=== PATIENT | male | born 1960 | race Caucasian/White ===

== ENCOUNTER 2021-06-12 05:38 | Day surgery (SDC) | payer OTHER ==
[2021-06-10 08:37] VITALS: BMI 27.3
--- NOTE | 2021-06-11 15:19 | HP ---
HISTORY AND PHYSICAL DATE OF SURGERY: 06/12/2021 Miguel De La Garza is a 60-year-old gentleman seen with progressive left shoulder pain. We discussed options for treatment. He elected to proceed with left shoulder arthroscopy. Consent was obtained. PAST MEDICAL HISTORY: Hypertension. PAST SURGICAL HISTORY: Noncontributory. DAILY MEDICATIONS: None. ALLERGIES: NONE REPORTED. SOCIAL HISTORY: He smokes cigarettes. PHYSICAL EVALUATION OF THE LEFT SHOULDER: Flexion 140 degrees. Abduction is 100 degrees, external rotation is 10 degrees with some weakness. There is tenderness along the anterolateral acromion and rotator cuff insertion site. Impingement sign is positive at 90 degrees. Cross-body adduction sign is positive. Drop-arm sign is positive. Distal neurovascular exam is intact. Radiographs of the left shoulder revealed a type 2 acromion, severe acromioclavicular joint osteoarthritis and cystic changes of the tuberosity. Left shoulder MRI revealed osteoarthritic changes, impingement, acromioclavicular joint osteoarthritis and rotator cuff tendon tear. IMPRESSION: 1. Left shoulder impingement with rotator cuff tear. 2. Left shoulder acromioclavicular joint osteoarthritis. 3. Hypertension. PLAN: Left shoulder arthroscopy with subacromial decompression, arthroscopic rotator cuff repair, Adeline procedure and debridement. MMODL / IJN: [id number] /
[2021-06-12] MEDS ORDERED: HYDROmorphone 0.5 MG/0.5 ML SYRINGE IVP PRN (06:06)
[2021-06-12] MEDS ORDERED: MIDAZOLAM 2 MG/2 ML VIAL IV PRN (06:06)
[2021-06-12] MEDS ORDERED: LACTATED RINGERS 1,000 ML IV SCH (06:06)
[2021-06-12] MEDS ORDERED: DEXAMETHASONE SOD PHOSPHATE 4 MG/ML 1 ML VIAL IV ONE (06:06)
[2021-06-12] MEDS ORDERED: ONDANSETRON 4 MG/2 ML VIAL IVP ONE (06:06)
[2021-06-12 06:25] VITALS: TEMP 97.9
[2021-06-12] MEDS ORDERED: LIDOCAINE 1% (10MG/ML) FOR IV START INTRADERMA ONE (06:50)
[2021-06-12] MEDS ORDERED: SUCCINYLCHOLINE CHLORIDE VIAL 200 MG/10 ML VIAL IV ONE (07:21)
[2021-06-12] MEDS ORDERED: PROPOFOL 10 MG/ML 20 ML VIAL IV ONE (07:21)
[2021-06-12] MEDS ORDERED: LIDOCAINE 1% INJ 10MG/ML (20 ML MDV) ONE (07:21)
[2021-06-12] MEDS ORDERED: DEXAMETHASONE SOD PHOSPHATE 4 MG/ML 1 ML VIAL ONE (07:21)
[2021-06-12] MEDS ORDERED: ROPIVACAINE 5 MG/ML 30 ML VIAL ONE (07:21)
[2021-06-12] MEDS ORDERED: fentaNYL (PF) 50 MCG/ML 2 ML AMP ONE (07:21)
--- NOTE | 2021-06-12 08:55 | P.OP ---
Date of Procedure: 06/12/21 Preoperative Diagnosis: Left shoulder impingement Postoperative Diagnosis: 1. Left shoulder rotator cuff tear 2. Left shoulder acromioclavicular joint osteoarthritis 3. Left shoulder impingement Procedure(s) Performed: 1. Left shoulder arthroscopic rotator cuff repair 2. Left shoulder arthroscopic Adeline procedure 3. Left shoulder arthroscopic subacromial decompression Implants: 14.75 Arthrex swivel lock anchor Anesthesia: GETA, regional (Interscalene block) Surgeon: Jose C Lubin Estimated Blood Loss (ml): 11 Pathology: none sent Condition: stable Disposition: PACU Indications for Procedure: 60-year-old gentleman seen with progressive left shoulder pain. After treatment options were discussed with him, he elected to proceed with arthroscopy. Operative Findings: See description of procedure Description of Procedure: Patient underwent an interscalene block by department of anesthesia. The patient was then taken to the operative suite. The patient underwent a general anesthetic by the department of anesthesia. The patient was placed into a lateral position and secured. There was appropriate padding of the bony prominence. Left shoulder was then prepped and draped in normal sterile orthopedic fashion. We placed the extremity in 10 pounds of longitudinal traction. A posterior incision was now made for a posterior working portal site. The trocar and cannula were inserted into the glenohumeral joint. Arthroscopy was initiated. Spinal needle was now inserted anteriorly, to ascertain the anterior working portal site. An incision was now made in that area, a trocar was inserted followed by a probe. There was some superficial fraying of the anterior and superior labrum. There was no significant chondromalacia present. The long head biceps tendon appeared stable as did the anchor. I introduced a motorized shaver and debrided out the area superficial fraying of the labrum. I again probe the labrum and it was found to be stable. Instruments were now removed from the glenohumeral joint. Utilizing the posterior working portal site, the trocar and cannula were inserted into the subacromial space. Arthroscopy initiated. I made an incision 2 fingerbreadths lateral to the acromion. I introduced my trocar followed by my ArthroCare ablator. I now began ablating thick subacromial bursal tissue, which exposed the undersurface of the anterior acromion. There was diminished subacromial space. There was a very prominent anterior acromion. A motorized bur was introduced and a subacromial decompression was performed. I also excised some osteophytes off the inferior aspect of the distal clavicle. The AC joint was visualized and noted to be fairly arthritic. The motorized bur was introduced in the anterior portal site and a Adeline procedure was performed without difficulty, decompressing the AC joint nicely. I turned my attention to the rotator cuff. There was significant tearing along the posterior aspect of the distal supraspinatus. Upon probing the area there was a full-thickness perforation present. I debrided the margins getting down to stable tendon tissue. I abraded the footprint with a motorized bur. I now with the assistance of Brian MCGEE past 3 everted mattress sutures through good bites of rotator cuff tendon. I now punched to holes in the footprint for insertion of an anchor. All 6 limbs of suture were passed through the eyelet of a 4.75 Arthrex swivel lock anchor. I placed the eyelet into the pre-punched hole. I held it in position while Brian MCGEE tensioned all suture limbs and deployed the anchor with good fixation noted. All residual suture limbs were now clipped. We had good compression of the tendon along the entire footprint. Instruments now removed from the portal sites. All portal sites were approximated with nylon suture. Sterile dressings were applied followed by a shoulder sling. Bear MCGEE assisted in this complex case. The patient was awakened, transferred to a bed, and taken to recovery in stable condition.
[2021-06-12 09:04] VITALS: RESP 16
[2021-06-12 10:20] VITALS: BP 163/83; PULSE 62
--- NOTE | 2021-06-12 20:54 | P.ANPRN ---
Procedure Note - Anesthesia - Nerve Block Performed Left Interscalene Single Time Out Performed: Yes Date of Procedure: 06/12/20 Procedure Start Time: : Procedure Stop Time: :08 Location of Patient: PreOp Indication: Acute Post-Operative Pain, Requested by Surgeon Sedation Type: Sedate with meaningful contact maintained Preparation: Sterile Prep Position: Supine Needle Types: Pajunk Needle Gauge: 21 Ultrasound used to visualize needle placement: Yes Ultrasound used to observe medication spread: Yes Blood Aspirated: No Pain Paresthesia on Injection Noted: No Resistance on Injection: Normal Image Stored and Saved: Yes Events: Uneventful and Well Tolerated (ropi .5% 20cc plus dexamethasone 4mg)
== END 2021-06-12 10:26 | disposition home or self-care (01) ==
LOC: OR 05:38
PROVIDERS: ATTEND Orthopaedic Surgery
DX: M75.102 Unspecified rotator cuff tear or rupture of left shoulder, not specified as traumatic (principal); M25.712 Osteophyte, left shoulder; M19.012 Primary osteoarthritis, left shoulder; M25.812 Other specified joint disorders, left shoulder; I10 Essential (primary) hypertension; F17.210 Nicotine dependence, cigarettes, uncomplicated
CPT/HCPCS: 64415; 76942; 29826; 29827; 29824; C1713; J2250; J0330; J1100; J0690; J2405; J2001; J3010; J2795; J2704

== ENCOUNTER → 2023-04-24 | Outpatient (CLI) | payer OTHER ==
--- NOTE | 2023-04-26 23:30 | MR ---
EXAMINATION TYPE: MR lumbar spine wo con DATE OF EXAM: 04/24/2023 11:47 AM CLINICAL INDICATION:Male, 62 years old with history of M47.817 SPONDYLS W/O MYELOPATHY OR RADICULOPAT HY; PHH, Low back pain that radiates down both legs COMPARISON: None TECHNIQUE: Multi planar, multi sequence imaging was performed utilizing: T1-weighted, T2-weighted, a nd turbo inversion recovery imaging of the lumbar spine. IV Contrast: cc . (None if empty) FINDINGS: Alignment: The lumbar vertebral bodies have preserved heights and alignment. Cord: The conus medullaris and the distal spinal cord appear unremarkable with regards to their signa l intensity and morphology. Bones/Discs: Mild degeneration changes throughout the spine with osteophyte formation and facet joint arthropathy. Intervertebral disc signal is maintained. T12-L1: No evidence of significant spinal canal stenosis or neural foraminal stenosis. L1-L2: No evidence of significant spinal canal stenosis or neural foraminal stenosis. L2-L3: No evidence of significant spinal canal stenosis or neural foraminal stenosis. L3-L4: Disc bulge and facet joint arthropathy result in mild spinal canal and mild bilateral neural f oraminal stenosis. L4-L5: Disc bulge and facet joint arthropathy result in mild spinal canal and mild bilateral neural f oraminal stenosis. L5-S1: The disc is rounded posterior morphology without significant spinal canal stenosis. Facet join t arthropathy with mild bilateral neural foraminal stenosis. No significant spinal canal or neural foraminal stenosis in the remainder of the visualized levels. Other findings: High T2 signal simple appearing left hepatic lobe cyst. IMPRESSION: 1. No definitive evidence of disc herniation or significant spinal canal stenosis. 2. Mild disc degeneration with associated osteoarthritic changes. No significant neural foraminal st enosis.
== END | disposition home or self-care (01) ==
LOC: RADMRIMAIN 10:42
PROVIDERS: ATTEND Physical Medicine & Rehabilitation
DX: M47.817 Spondylosis without myelopathy or radiculopathy, lumbosacral region (principal); M43.16 Spondylolisthesis, lumbar region; M48.062 Spinal stenosis, lumbar region with neurogenic claudication; M51.37 Other intervertebral disc degeneration, lumbosacral region; M43.12 Spondylolisthesis, cervical region
CPT/HCPCS: 72148

== ENCOUNTER → 2023-05-26 | Outpatient (CLI) | payer OTHER ==
[2023-05-26 11:23] VITALS: BP 164/93; PULSE 59; RESP 16; TEMP 97.3
--- NOTE | 2023-05-26 14:34 | P.PAINPG ---
PQRS Measure Charge Sheet History and Exam Findings: All other causes of pain ruled out Comment: HISTORY OF PRESENT ILLNESS: A 62 yr old male as a referral from Dr Tsang presents today w severe and chronic LBP x 1 yr secondary to DDD, spondylosis and facet arthropathy without myelopathy for evaluation. Pt states pain level is provoked at 7 /10 in intensity, constant, localized in the lower lumbar spine, predominantly axial, sharp in character w occasional shooting pain towards the LEs, L> R. Pain is provoked by any movement. Pain is alleviated by repositioning and rest. Pt has a preference to go to the chiropractor his girlfriend goes to. Oswestry axial pain score at 28. PMH: OA, HTN, GERD PSH: Colonoscopy w polypectomy (2013), L RCT Repair (2021) SH: +Tobacco use, Occasional ETOH use, No illicit drug use FH: Noncontributory All: See list Meds: See list REVIEW OF ORGAN SYSTEMS: CONSTITUTIONAL: No fevers or chills. No recent weight loss. NEUROLOGICAL: + numbness and tingling along the distal extremities. No seizure disorders or headaches. MUSCULOSKELETAL: + pain PSYCHIATRIC: Denies current depression or suicidal thoughts. Physical Examinations : Constitutional : Cooperative , not in acute distress . Neurologic : Cranial nerve II to XII intact. No focal neurological deficits. Psychiatric : alert & oriented x 3. Matching mood & appropriate affect. Judgment & insight intact. Musculoskeletal : Cervical Spine Motor strength in the deltoid and biceps: Normal right side. Normal Left side Motor strength biceps and the wrist extensors: Normal right side . Normal left side Motor strength in the triceps muscle: Normal right side. Normal left side Deep tendon reflexes: Normal at the biceps. Normal at Brachioradialis. Normal at triceps Vertebral body tenderness to deep palpation over Cervical facet loading test: positive bilaterally Spurling test: positive bilaterally Neck distraction test: positive bilaterally Abby sign: positive bilaterally Lumbar spine Motor strength lower extremities ,thigh and legs 5/5 Right side , 5/5 Left side Deep tendon reflexes : Normal Knee Jerk. Normal Ankle Jerk Vertebral body tenderness over L5 Hyde Test positive over L L5-S1 Lumbar facet Loading Test: positive Right / positive Left Range of motion of the lumbar spine Flexion 30 degrees, extension 10 degrees Straight Leg Raise test: Left/ Right positive at <35 degrees Krystina test: positive right / positive left. Severe tenderness over the Sacroiliac joint on the Right / Left sides Gaenslen test: positive bilaterally Seated flexion test: positive bilaterally. Sacral spine : Severe tenderness over the Sacroiliac joint: right side / left side Range of motion: Flexion of the lumbar spine <60 degrees Range of motion: Extension of the lumbar spine <20 degrees Gaenslen's Test positive Krystina test: positive right side / left side Thigh Thrust Test Sacral Thrust Test Imaging: MRI noncontrast of the lumbar spine from 04/24/23 reviewed Assessment/ Plan : Lumbar DDD Recommendation of chiropractic treatments x 6 wks M51.36. Risks, benefits of procedure discussed and patient verbalized understanding. Admits to anti- coagulant use or medical history of diabetes. Protocol for discontinuation/ continuation of medications sheeba procedure discussed. Would benefit from L TFESI L5-S1 if still having severe pain. All questions answered. I have spent greater than 30 minutes on patient care today. Dr Quarles was available by phone for the evaluation of this patient. The time was used to review the medical records including relevant urine studies and Prescription history (MAPs), review of the available imaging, evaluation and examination of the patient, coordination of care with the medical staff and if applicable referring physicians, as well as creation of the medical record PQRS Narrative: Smoking Status Heavy tobacco smoker Home Medications: Ambulatory Orders HYDROcodone/APAP 7.5-325MG [[place] 7.5] 1 each PO Q6HR PRN #28 tab 06/12/21 Controlled Substance Measures - Controlled Substance Measures Is patient prescribed a controlled substance at discharge?: No
== END ==
LOC: PNWHC3 10:57
PROVIDERS: ATTEND Specialist
DX: M51.37 Other intervertebral disc degeneration, lumbosacral region (principal); M47.817 Spondylosis without myelopathy or radiculopathy, lumbosacral region; M43.16 Spondylolisthesis, lumbar region; M43.12 Spondylolisthesis, cervical region; G89.4 Chronic pain syndrome; M19.90 Unspecified osteoarthritis, unspecified site; I10 Essential (primary) hypertension; K21.9 Gastro-esophageal reflux disease without esophagitis; F17.200 Nicotine dependence, unspecified, uncomplicated; F12.90 Cannabis use, unspecified, uncomplicated
CPT/HCPCS: 99211

== ENCOUNTER → 2023-07-07 | Outpatient (CLI) | payer OTHER ==
[2023-07-07 11:35] VITALS: BP 144/84; PULSE 89; RESP 15; TEMP 98.7
--- NOTE | 2023-07-07 14:29 | P.PAINPG ---
PQRS Measure Charge Sheet Comment: HISTORY OF PRESENT ILLNESS: A 62 yr old male w vinny at side presents today w severe and chronic LBP x 1 yr secondary to DDD, spondylosis and facet arthropathy without myelopathy for evaluation. Pt states pain level is provoked at 9 /10 in intensity, constant, localized in the lower lumbar spine, predominantly axial, sharp in character w occasional shooting pain towards the LLE. Pain is provoked by any movement. Pain is alleviated by chiropractic treatments weekly x 6 wks which ended in Jun 2022, manual massage, repositioning and rest. Oswestry axial pain score at 28. Interventional procedures include Medications include Cannabis use REVIEW OF ORGAN SYSTEMS: CONSTITUTIONAL: No fevers or chills. No recent weight loss. NEUROLOGICAL: + numbness and tingling along the distal extremities. No seizure disorders or headaches. MUSCULOSKELETAL: + pain PSYCHIATRIC: Denies current depression or suicidal thoughts. Physical Examinations : Constitutional : Cooperative , not in acute distress . Neurologic : Cranial nerve II to XII intact. No focal neurological deficits. Psychiatric : alert & oriented x 3. Matching mood & appropriate affect. Judgment & insight intact. Musculoskeletal : Cervical Spine Motor strength in the deltoid and biceps: Normal right side. Normal Left side Motor strength biceps and the wrist extensors: Normal right side . Normal left side Motor strength in the triceps muscle: Normal right side. Normal left side Deep tendon reflexes: Normal at the biceps. Normal at Brachioradialis. Normal at triceps Vertebral body tenderness to deep palpation over Cervical facet loading test: positive bilaterally Spurling test: positive bilaterally Neck distraction test: positive bilaterally Abby sign: positive bilaterally Lumbar spine Motor strength lower extremities ,thigh and legs 5/5 Right side , 5/5 Left side Deep tendon reflexes : Normal Knee Jerk. Normal Ankle Jerk Vertebral body tenderness over L5 Hyde Test positive over L L5-S1 Lumbar facet Loading Test: positive Right / positive Left Range of motion of the lumbar spine Flexion 30 degrees, extension 10 degrees Straight Leg Raise test: Left/ Right positive at <35 degrees Krystina test: positive right / positive left. Severe tenderness over the Sacroiliac joint on the Right / Left sides Gaenslen test: positive bilaterally Seated flexion test: positive bilaterally. Sacral spine : Severe tenderness over the Sacroiliac joint: right side / left side Range of motion: Flexion of the lumbar spine <60 degrees Range of motion: Extension of the lumbar spine <20 degrees Gaenslen's Test positive Krystina test: positive right side / left side Thigh Thrust Test Sacral Thrust Test Imaging: MRI noncontrast of the lumbar spine from 04/24/23 reviewed Assessment/ Plan : Lumbar DDD Recommendation of L TFESI L5-S1 #1. May need a series of injections for optimal pain relief. Risks, benefits of procedure discussed and patient verbalized understanding. Admits to anti- coagulant use or medical history of diabetes. Protocol for discontinuation/ continuation of medications sheeba procedure discussed. All questions answered. I have spent greater than 30 minutes on patient care today. Dr Quarles was available by phone for the evaluation of this patient. The time was used to review the medical records including relevant urine studies and Prescription history (MAPs), review of the available imaging, evaluation and examination of the patient, coordination of care with the medical staff and if applicable referring physicians, as well as creation of the medical record PQRS Narrative: Smoking Status Heavy tobacco smoker Hx Alcohol Use (MH) Yes Home Medications: Ambulatory Orders HYDROcodone/APAP 7.5-325MG [[place] 7.5] 1 each PO Q6HR PRN #28 tab 06/12/21 Controlled Substance Measures - Controlled Substance Measures Is patient prescribed a controlled substance at discharge?: No
== END ==
LOC: PNWHC3 10:30
PROVIDERS: ATTEND Specialist
DX: M51.37 Other intervertebral disc degeneration, lumbosacral region (principal); F12.90 Cannabis use, unspecified, uncomplicated; F17.200 Nicotine dependence, unspecified, uncomplicated
CPT/HCPCS: 99211

== ENCOUNTER 2023-07-22 07:14 | Day surgery (SDC) | payer OTHER ==
[2023-07-22] MEDS ORDERED: LACTATED RINGERS 1,000 ML IV SCH (07:38)
[2023-07-22 08:15] VITALS: RESP 16; TEMP 97.2
[2023-07-22] MEDS ORDERED: IOPAMIDOL M200 10 ML VIAL ONE (08:44)
[2023-07-22] MEDS ORDERED: methylPREDNISolone ACETATE 80 MG/ML 1 ML VIAL ONE (08:44)
--- NOTE | 2023-07-22 08:54 | P.PCN ---
Date of Procedure: 07/22/23 Procedure(s) Performed: PREOPERATIVE DIAGNOSIS: 1-Lumbar radiculopathy . 2-lumbar degenerative disc disease. 3-lumbar spondylosis with lumbar facet arthropathy without myelopathy POSTOPERATIVE DIAGNOSIS: 1-lumbar radiculopathy. 2-lumbar degenerative disc disease. 3-lumbar spondylosis with facet arthropathy without myelopathy PROCEDURE 1. Transforaminal epidural steroid injection under fluoroscopic guidance at left L5-S1 level. (Fluoroscopy images stored on file in the radiology Department ) 2. Lumbar epidurogram . ANESTHESIA: Local with 1% lidocaine 3 ml. EBL: Minimal PROCEDURE INDICATION: The patient with low back pain and radiculopathy symptoms unresponsive to conservative treatment. PROCEDURE DESCRIPTION / TECHNIQUE: The patient was seen and identified in the preoperative area. Risks, benefits, complications, and alternatives were discussed with the patient. The patient agreed to proceed with the procedure and signed the consent. IV was started, and vital signs were stable. Patient was taken to the OR and time out was completed. The patient was placed in the prone position on procedure table and a pillow was placed under the abdomen to reduce lumbar lordosis. The lumbosacral area was prepped and draped in the usual sterile fashion. Critical pause was taken. Vital signs were closely monitored during the procedure. Using oblique fluoroscopy, the chin of the ``[place] dog at left L5-S1 level was identified, and the skin and deeper tissues just below was localized with 1% lidocaine. Subsequently, a 22-gauge 3.5-inch spinal needle was advanced under a tunneled view fluoroscopic guidance just underneath the chin of the `[place] dog at the left L5-S1 Under lateral fluoroscopy, the needle was then advanced to the posterior border of the interforaminal space. After negative aspiration of CSF and blood and with no paresthesias, 1 mL Isovue 200 contrast dye was injected excellent epidurogram and outlining of the nerve root Subsequently, 3 mL of block solution containing 80 mg Depo-Medrol and 2 mL of 0.9% normal saline PF was injected.then the needle was removed . At the end of the procedure, skin was cleansed, and bandages were applied. COMPLICATIONS:none DISPOSITION / PLANS: The patient was placed in a supine position and transferred to the recovery area in a stable condition for observation. There was no evidence of lower extremity motor or sensory deficit after the procedure. Patient was discharged from the recovery room after meeting discharge criteria. Home discharge instructions were given to the patient by the staff. The patient was reexamined prior to discharge.
[2023-07-22 09:25] VITALS: BP 151/84; PULSE 54
--- NOTE | 2023-07-22 09:53 | FL ---
EXAMINATION TYPE: FL guided pain mgmt statistic Intraoperative/procedural fluoroscopic services were provided. Total fluoroscopy time is 3.8 seconds with a total of 1 submitted images to PACS. Please se e the operative/procedural note for further details. DAP: [id number]. [email or web address]
== END 2023-07-22 09:11 | disposition home or self-care (01) ==
LOC: ORPAIN 07:14
PROVIDERS: ATTEND Specialist
DX: M51.16 Intervertebral disc disorders with radiculopathy, lumbar region (principal); M47.26 Other spondylosis with radiculopathy, lumbar region
CPT/HCPCS: 64483; J1040; Q9966

== ENCOUNTER → 2023-08-09 | Outpatient (CLI) | payer OTHER ==
[2023-08-09 11:18] VITALS: BP 142/78; PULSE 75; RESP 15; TEMP 98.5
--- NOTE | 2023-08-09 14:43 | P.PAINPG ---
PQRS Measure Charge Sheet Comment: HISTORY OF PRESENT ILLNESS: A 62 yr old male w vinny at side presents today w severe and chronic LBP x 1 yr secondary to DDD, spondylosis and facet arthropathy without myelopathy for evaluation s/p L TFESI L5-S1 #1. Pt states he experienced 100 % pain relief x 2 wks s/p procedure. Pt states pain level is provoked at 1 /10 in intensity in the lumbar spine, 5 /10 in intensity in the cervical spine, constant, predominantly axial, sharp in character w occasional shooting pain towards the head. Pain is provoked by any movement. Pain is alleviated by chiropractic treatments weekly x 6 wks which ended in May-Jul 2023 (cervica, lumbar), manual massage, repositioning and rest. Cervical disability score of 15. Interventional procedures include L TFESI L5-S1 x1 Medications include Cannabis use REVIEW OF ORGAN SYSTEMS: CONSTITUTIONAL: No fevers or chills. No recent weight loss. NEUROLOGICAL: + numbness and tingling along the distal extremities. No seizure disorders or headaches. MUSCULOSKELETAL: + pain PSYCHIATRIC: Denies current depression or suicidal thoughts. Physical Examinations : Constitutional : Cooperative , not in acute distress . Neurologic : Cranial nerve II to XII intact. No focal neurological deficits. Psychiatric : alert & oriented x 3. Matching mood & appropriate affect. Judgment & insight intact. Musculoskeletal : Cervical Spine Motor strength in the deltoid and biceps: Normal right side. Normal Left side Motor strength biceps and the wrist extensors: Normal right side . Normal left side Motor strength in the triceps muscle: Normal right side. Normal left side Deep tendon reflexes: Normal at the biceps. Normal at Brachioradialis. Normal at triceps Vertebral body tenderness to deep palpation Cervical facet loading test: positive bilaterally Spurling test: positive bilaterally Neck distraction test: positive bilaterally Abby sign: positive bilaterally Lumbar spine Motor strength lower extremities ,thigh and legs 5/5 Right side , 5/5 Left side Deep tendon reflexes : Normal Knee Jerk. Normal Ankle Jerk Vertebral body tenderness Hyde Test positive Lumbar facet Loading Test: positive Right / positive Left Range of motion of the lumbar spine Flexion 30 degrees, extension 10 degrees Straight Leg Raise test: Left/ Right positive at <35 degrees Krystina test: positive right / positive left. Severe tenderness over the Sacroiliac joint on the Right / Left sides Gaenslen test: positive bilaterally Seated flexion test: positive bilaterally. Sacral spine : Severe tenderness over the Sacroiliac joint: right side / left side Range of motion: Flexion of the lumbar spine <60 degrees Range of motion: Extension of the lumb ar spine <20 degrees Gaenslen's Test positive Krystina test: positive right side / left side Thigh Thrust Test Sacral Thrust Test Imaging: MRI noncontrast of the lumbar spine from 04/24/23 reviewed Assessment/ Plan : Lumbar DDD Recommendation of cervical x ray M50.30 . May need additional imaging if indicated. All questions answered. I have spent greater than 30 minutes on patient care today. Dr Quarles was available by phone for the evaluation of this patient. The time was used to review the medical records including relevant urine studies and Prescription history (MAPs), review of the available imaging, evaluation and examination of the patient, coordination of care with the medical staff and if applicable referring physicians, as well as creation of the medical record PQRS Narrative: Smoking Status Heavy tobacco smoker Hx Alcohol Use (MH) Yes Home Medications: Ambulatory Orders Pantoprazole [Protonix] 40 mg PO DAILY 07/19/23 Controlled Substance Measures - Controlled Substance Measures Is patient prescribed a controlled substance at discharge?: No
== END | disposition home or self-care (01) ==
LOC: PNWHC3 10:45
PROVIDERS: ATTEND Specialist
DX: M47.812 Spondylosis without myelopathy or radiculopathy, cervical region (principal); M51.36 Other intervertebral disc degeneration, lumbar region; F12.90 Cannabis use, unspecified, uncomplicated; F17.200 Nicotine dependence, unspecified, uncomplicated
CPT/HCPCS: 99211

== ENCOUNTER → 2023-08-09 | Outpatient (CLI) | payer OTHER ==
--- NOTE | 2023-08-09 12:04 | XR ---
EXAMINATION TYPE: XR cervical spine limited DATE OF EXAM: 08/09/2023 CLINICAL HISTORY: pain TECHNIQUE: 3 views of the cervical spine are submitted. COMPARISON: None. FINDINGS: There is satisfactory in alignment without evidence of acute fracture or dislocation. The pre-vertebral soft tissue appears within normal limits. Moderate degenerative disc space narrowing C 4-5, C5-6 and C6-7. Ventral and dorsal spondylosis. The C1-C2 articulation is unremarkable on the ope n mouth view. IMPRESSION: No acute fracture or dislocation is seen in the cervical spine.
== END | disposition home or self-care (01) ==
LOC: RADXRMAIN 11:34
PROVIDERS: ATTEND Physician Assistant Medical
DX: M50.30 Other cervical disc degeneration, unspecified cervical region (principal)
CPT/HCPCS: 72040

== ENCOUNTER → 2023-08-17 | Outpatient (CLI) | payer OTHER ==
--- NOTE | 2023-08-17 12:42 | MR ---
EXAMINATION TYPE: MR cervical spine wo con DATE OF EXAM: 08/17/2023 COMPARISON: X-ray 08/09/2023 HISTORY: Pain TECHNIQUE: Multiplanar, multisequence images of the cervical spine were acquired without contrast. C2-C3: Mild disc desiccation. No disc herniation or canal stenosis. Mild facet arthropathy. No forami nal encroachment. C3-C4: Moderate degenerative disc disease with posterior disc osteophyte complex abutting the anterio r margin of the spinal cord. Uncovertebral joint hypertrophy. No foraminal encroachment. Findings res ult in canal stenosis. C4-C5: Moderate to severe degenerative disc disease with broad-based disc protrusion abutting the ant erior margin of the spinal cord. Facet arthropathy and uncovertebral joint hypertrophy contribute to moderate to severe right foraminal encroachment. There is mild canal stenosis. C5-C6: Severe degenerative disc disease with disc osteophyte complex and central broad-based disc pro trusion. Facet arthropathy and uncovertebral joint hypertrophy with mild to moderate bilateral forami nal encroachment and mild central stenosis. No definite spinal cord displacement. C6-C7: Mild degenerative disc disease. No disc herniation, canal stenosis,. Mild uncovertebral joint hypertrophy. Neural foramina patent. C7-T1: Mild degenerative disc disease with no disc herniation, canal stenosis, or foraminal encroachm ent. There is loss of the normal cervical lordosis with straightening of the cervical spine which is nonsp ecific but can be seen with muscular spasm. Slight levoscoliotic curvature of the spine noted. Cranio cervical junction grossly maintained. IMPRESSION: 1. There is a moderate to severe degenerative disc disease most marked at C4-5 and C5-C6. Straighteni ng of the cervical spine can be associated with muscular spasm. 2. A central disc small protrusion or small herniation abutting the anterior margin of the cervical s fabiola cord C3-C4. 3. Disc protrusion with disc osteophyte complex C4-5 and C5-6 results in mild canal stenosis.
== END | disposition home or self-care (01) ==
LOC: RADMRIMAIN 10:49
PROVIDERS: ATTEND Specialist
DX: M50.321 Other cervical disc degeneration at C4-C5 level (principal); M48.02 Spinal stenosis, cervical region; M25.78 Osteophyte, vertebrae
CPT/HCPCS: 72141

== ENCOUNTER → 2023-08-23 | Outpatient (CLI) | payer OTHER ==
[2023-08-23 13:23] VITALS: BP 169/89; PULSE 57; RESP 16; TEMP 97
--- NOTE | 2023-08-23 13:58 | P.PAINPG ---
PQRS Measure Charge Sheet Comment: HISTORY OF PRESENT ILLNESS: A 62 yr old male w vinny at side presents today w severe and chronic LBP x 1 yr secondary to DDD, spondylosis and facet arthropathy without myelopathy for evaluation. Pt states pain level is provoked at 7 /10 in intensity in the cervical spine, constant, predominantly axial, sharp in character w occasional shooting pain towards the UEs. Pain is provoked by any movement. Pain is alleviated by chiropractic treatments weekly x 6 wks which ended in May-Jul 2023 (cervical, lumbar), manual massage, repositioning and rest. Cervical disability score of 15. Interventional procedures include L TFESI L5-S1 x1 Medications include Cannabis use REVIEW OF ORGAN SYSTEMS: CONSTITUTIONAL: No fevers or chills. No recent weight loss. NEUROLOGICAL: + numbness and tingling along the distal extremities. No seizure disorders or headaches. MUSCULOSKELETAL: + pain PSYCHIATRIC: Denies current depression or suicidal thoughts. Physical Examinations : Constitutional : Cooperative , not in acute distress . Neurologic : Cranial nerve II to XII intact. No focal neurological deficits. Psychiatric : alert & oriented x 3. Matching mood & appropriate affect. Judgment & insight intact. Musculoskeletal : Cervical Spine Motor strength in the deltoid and biceps: Normal right side. Normal Left side Motor strength biceps and the wrist extensors: Normal right side . Normal left side Motor strength in the triceps muscle: Normal right side. Normal left side Deep tendon reflexes: Normal at the biceps. Normal at Brachioradialis. Normal at triceps Vertebral body tenderness to deep palpation over C6 Cervical facet loading test: positive bilaterally Spurling test: positive bilaterally BL C6-C7 Neck distraction test: positive bilaterally Abby sign: positive bilaterally Lumbar spine Motor strength lower extremities ,thigh and legs 5/5 Right side , 5/5 Left side Deep tendon reflexes : Normal Knee Jerk. Normal Ankle Jerk Vertebral body tenderness Hyde Test positive Lumbar facet Loading Test: positive Right / positive Left Range of motion of the lumbar spine Flexion 30 degrees, extension 10 degrees Straight Leg Raise test: Left/ Right positive at <35 degrees Krystina test: positive right / positive left. Severe tenderness over the Sacroiliac joint on the Right / Left sides Gaenslen test: positive bilaterally Seated flexion test: positive bilaterally. Sacral spine : Severe tenderness over the Sacroiliac joint: right side / left side Range of motion: Flexion of the lumbar spine <60 degrees Range of motion: Extension of the lumbar spine <20 degrees Gaenslen's Test positive Krystina test: positive right side / left side Thigh Thrust Test Sacral Thrust Test Imaging: MRI noncontrast of the lumbar spine from 04/24/23 reviewed MRI noncontrast of the cervical spine from 08/17/23 reviewed Assessment/ Plan : Lumbar DDD, Cervical C4-C6 severe DDD Recommendation of ASHISH C6-C7 #1. May need a series of injections for optimal pain relief. Risks, benefits of procedure discussed and pt verbalized understanding. Protocol for discontinuation/ continuation of medications sheeba procedure discussed. All questions answered. I have spent greater than 30 minutes on patient care today. Dr Quarles was available by phone for the evaluation of this patient. The time was used to review the medical records including relevant urine studies and Prescription history (MAPs), review of the available imaging, evaluation and examination of the patient, coordination of care with the medical staff and if applicable referring physicians, as well as creation of the medical record PQRS Narrative: Smoking Status Heavy tobacco smoker Hx Alcohol Use (MH) Yes Home Medications: Ambulatory Orders Pantoprazole [Protonix] 40 mg PO DAILY 07/19/23 Controlled Substance Measures - Controlled Substance Measures Is patient prescribed a controlled substance at discharge?: No
== END ==
LOC: PNWHC3 10:57
PROVIDERS: ATTEND Specialist
DX: M51.36 Other intervertebral disc degeneration, lumbar region (principal); M50.321 Other cervical disc degeneration at C4-C5 level; M50.322 Other cervical disc degeneration at C5-C6 level; M50.323 Other cervical disc degeneration at C6-C7 level; F17.200 Nicotine dependence, unspecified, uncomplicated
CPT/HCPCS: 99211

== ENCOUNTER 2023-08-31 08:39 | Day surgery (SDC) | payer OTHER ==
[~2023-08-31 08:39] MED LIST: LACTATED RINGERS 1,000 ML IV SCH
[2023-08-31 10:28] VITALS: TEMP 98
[2023-08-31] MEDS ORDERED: DEXAMETHASONE SOD PHOSPHATE 10 MG/ML 1 ML VIAL ONE (10:34)
[2023-08-31] MEDS ORDERED: IOPAMIDOL M200 10 ML VIAL ONE (10:34)
--- NOTE | 2023-08-31 10:41 | P.PCN ---
Date of Procedure: 08/31/23 Procedure(s) Performed: . PROCEDURE 1. Cervical epidural steroid injection under fluoroscopic guidance, C6-7 (fluoroscopy images available in the radiology department ) 2. Cervical epidurogram. PREOPERATIVE DIAGNOSIS: 1- Cervical Degenerative Disc Diseases 2-cervical spondylosis with cervical Facet arthropathy without myelopathy.4-cervical spinal stenosis POSTOPERATIVE DIAGNOSIS: : 1- Cervical Degenerative Disc Diseases , 2-cervical spondylosis with cervical Facet arthropathy without myelopathy. 4-cervical spinal stenosis ANESTHESIA: Local anesthesia with lidocaine 1% 3 ml only EBL 0 PROCEDURE INDICATION: The patient with neck pain and radiculitis unresponsive to conservative treatment consents for procedure. PROCEDURE DESCRIPTION / TECHNIQUE: The patient was seen and identified in the preoperative area. Risks, benefits, complications, including but not limited to infections ,bleeding , allergic reactions to the medications ,and not complete pain releife, and alternatives were discussed with the patient, the patient agreed to proceed with the procedure and signed the consent. Patient was taken to the OR and time out was completed. The patient was placed in the prone position on the procedure table. A pillow was placed under the patients chest to increase the cervical interlaminar space. The cervical area was prepped and draped in the usual sterile fashion. Vital signs were closely monitored during the procedure. Using anterior-posterior fluoroscopy, the C6-7 interlaminar space was identified and the skin over this site was marked and then infiltrated with 1% lidocaine subcutaneously. Subsequently, a 20-gauge 3-1/2-inch Tuohy epidural needle was inserted and advanced toward the epidural space by means of the ``hanging-drop technique and guided by AP and lateral fluoroscopy. The correct needle position in the epidural space was verified with the injection of 2 mL of the water soluble contrast dye Isovue-200 and observing an excellent epidurogram with the epidural spread of the dye, after negative aspiration for blood and CSF and in the absence of paresthesias. then, mixture containing 20 mg Dexamethasone and 2 ml of preservative-free normal saline injected and a washout of epidurogram was seen. Needle was withdrawn intact, skin was cleansed, and bandages were applied. Complications= none. Disposition= patient was placed in supine position and transferred to the recovery room area in stable condition and there was no evidence of upper or lower extremity motor or sensory deficit after the procedure patient was discharged from recovery room after discharge criteria met and home discharge instructions was given by the staff and patient will follow with the pain clinic in 2-4 weeks
[2023-08-31 11:14] VITALS: BP 152/84; PULSE 47; RESP 18
--- NOTE | 2023-09-02 16:44 | FL ---
EXAMINATION TYPE: FL guided pain mgmt statistic DATE OF EXAM: 08/31/2023 FLUOROSCOPY Fluoroscopy time of 3 seconds was used during cervical epidural steroid injection. 1 image/s documen t/s the procedure. .[id number] mGycm2 DAP dose
== END 2023-08-31 11:09 | disposition home or self-care (01) ==
LOC: ORPAIN 08:39
PROVIDERS: ATTEND Specialist
DX: M50.123 Cervical disc disorder at C6-C7 level with radiculopathy (principal); M47.22 Other spondylosis with radiculopathy, cervical region
CPT/HCPCS: 62321; J1100; Q9966

== ENCOUNTER → 2023-09-20 | Outpatient (CLI) | payer OTHER ==
[2023-09-20 11:09] VITALS: BP 180/81; PULSE 76; RESP 15; TEMP 98.1
--- NOTE | 2023-09-20 14:57 | P.PAINPG ---
PQRS Measure Charge Sheet Comment: HISTORY OF PRESENT ILLNESS: A 62 yr old male w vinny at side presents today w severe and chronic LBP x 1 yr secondary to DDD, spondylosis and facet arthropathy without myelopathy for evaluation s/p ASHISH C6-C7 #1. Pt states he experienced 70 % pain relief x 3 wks s/p procedure. Pt states pain level is provoked at 4 /10 in intensity in the cervical spine, constant, predominantly axial, sharp in character w occasional shooting pain towards the UEs. Pain is provoked by any movement. Pain is alleviated by chiropractic treatments weekly x 6 wks which ended in May-Jul 2023 (cervical, lumbar), manual massage, repositioning and rest. Cervical disability score of 15. Interventional procedures include L TFESI L5-S1 x1, ASHISH C6-C7 x1 Medications include Cannabis use REVIEW OF ORGAN SYSTEMS: CONSTITUTIONAL: No fevers or chills. No recent weight loss. NEUROLOGICAL: + numbness and tingling along the distal extremities. No seizure disorders or headaches. MUSCULOSKELETAL: + pain PSYCHIATRIC: Denies current depression or suicidal thoughts. Physical Examinations : Constitutional : Cooperative , not in acute distress . Neurologic : Cranial nerve II to XII intact. No focal neurological deficits. Psychiatric : alert & oriented x 3. Matching mood & appropriate affect. Judgment & insight intact. Musculoskeletal : Cervical Spine Motor strength in the deltoid and biceps: Normal right side. Normal Left side Motor strength biceps and the wrist extensors: Normal right side . Normal left side Motor strength in the triceps muscle: Normal right side. Normal left side Deep tendon reflexes: Normal at the biceps. Normal at Brachioradialis. Normal at triceps Vertebral body tenderness to deep palpation over C6 Cervical facet loading test: positive bilaterally Spurling test: positive bilaterally BL C6-C7 Neck distraction test: positive bilaterally Abby sign: positive bilaterally Lumbar spine Motor strength lower extremities ,thigh and legs 5/5 Right side , 5/5 Left side Deep tendon reflexes : Normal Knee Jerk. Normal Ankle Jerk Vertebral body tenderness Hyde Test positive Lumbar facet Loading Test: positive Right / positive Left Range of motion of the lumbar spine Flexion 30 degrees, extension 10 degrees Straight Leg Raise test: Left/ Right positive at <35 degrees Krystina test: positive right / positive left. Severe tenderness over the Sacroiliac joint on the Right / Left sides Gaenslen test: positive bilaterally Seated flexion test: positive bilaterally. Sacral spine : Severe tenderness over the Sacroiliac joint: right side / left side Range of motion: Flexion of the lumbar spine <60 degrees Range of motion: Extension of the lumbar spine <20 degrees Gaenslen's Test positive Krystina test: positive right side / left side Thigh Thrust Test Sacral Thrust Test Imaging: MRI noncontrast of the lumbar spine from 04/24/23 reviewed MRI noncontrast of the cervical spine from 08/17/23 reviewed Assessment/ Plan : Lumbar DDD, Cervical C4-C6 severe DDD Recommendation of physician guided home exercise plan and may RTC on an as needed basis. All questions answered. I have spent greater than 30 minutes on patient care today. Dr Quarles was available by phone for the evaluation of this patient. The time was used to review the medical records including relevant urine studies and Prescription history (MAPs), review of the available imaging, evaluation and examination of the patient, coordination of care with the medical staff and if applicable referring physicians, as well as creation of the medical record - Pain Location Bilateral Neck Pharmacological Interventions: Epidural PQRS Narrative: Smoking Status Heavy tobacco smoker Hx Alcohol Use (MH) Yes Home Medications: Ambulatory Orders Pantoprazole [Protonix] 40 mg PO DAILY 07/19/23 Controlled Substance Measures - Controlled Substance Measures Is patient prescribed a controlled substance at discharge?: No
== END ==
LOC: PNWHC3 10:47
PROVIDERS: ATTEND Specialist
DX: G89.29 Other chronic pain (principal); M51.36 Other intervertebral disc degeneration, lumbar region; M50.321 Other cervical disc degeneration at C4-C5 level; M50.322 Other cervical disc degeneration at C5-C6 level; M50.323 Other cervical disc degeneration at C6-C7 level; M47.812 Spondylosis without myelopathy or radiculopathy, cervical region; M47.816 Spondylosis without myelopathy or radiculopathy, lumbar region; F17.200 Nicotine dependence, unspecified, uncomplicated
CPT/HCPCS: 99211

== ENCOUNTER → 2024-09-18 | Outpatient (CLI) | payer BC, MEDICARE ==
[2024-09-18 10:54] VITALS: BP 167/90; PULSE 54; RESP 16; TEMP 97.7
--- NOTE | 2024-09-18 16:11 | P.PAINPG ---
Objective - Vital Signs Vital signs: Vital Signs Temp 97.7 F 09/18/24 10:37 Pulse 54 L 09/18/24 10:37 Resp 16 09/18/24 10:37 BP 167/90 09/18/24 10:37 Pulse Ox 98 09/18/24 10:37 FiO2 Intake & Output 09/17/24 09/18/24 09/18/24 18:59 06:59 18:59 Weight 73.936 kg PQRS Measure Charge Sheet Mode of Arrival: Ambulatory Comment: HISTORY OF PRESENT ILLNESS: A 64 yr old male w fiance at side presents today w severe and chronic neck and LBP x 1 yr secondary to radiculopathy, spondylosis and facet arthropathy without myelopathy for evaluation. Pt states pain level is provoked at 6 /10 in intensity in the cervical spine, constant, predominantly axial, sharp in character w occasional shooting pain towards the UEs. Pain is provoked by any movement. Pain is alleviated by chiropractic treatments weekly x 6 wks which ended in May-Jul 2023 (cervical, lumbar), manual massage, repositioning and rest. Cervical disability score of 15. Interventional procedures include L TFESI L5-S1 x1, ASHISH C6-C7 x1 (08/31) Medications include Cannabis use REVIEW OF ORGAN SYSTEMS: CONSTITUTIONAL: No fevers or chills. No recent weight loss. NEUROLOGICAL: + numbness and tingling along the distal extremities. No seizure disorders or headaches. MUSCULOSKELETAL: + pain PSYCHIATRIC: Denies current depression or suicidal thoughts. Physical Examinations : Constitutional : Cooperative , not in acute distress . Neurologic : Cranial nerve II to XII intact. No focal neurological deficits. Psychiatric : alert & oriented x 3. Matching mood & appropriate affect. Judgment & insight intact. Musculoskeletal : Cervical Spine Motor strength in the deltoid and biceps: Normal right side. Normal Left side Motor strength biceps and the wrist extensors: Normal right side . Normal left side Motor strength in the triceps muscle: Normal right side. Normal left side Deep tendon reflexes: Normal at the biceps. Normal at Brachioradialis. Normal at triceps Vertebral body tenderness to deep palpation over C6 Cervical facet loading test: positive bilaterally Spurling test: positive bilaterally BL C6-C7 Neck distraction test: positive bilaterally Abby sign: positive bilaterally Lumbar spine Motor strength lower extremities ,thigh and legs 5/5 Right side , 5/5 Left side Deep tendon reflexes : Normal Knee Jerk. Normal Ankle Jerk Vertebral body tenderness Hyde Test positive Lumbar facet Loading Test: positive Right / positive Left Range of motion of the lumbar spine Flexion 30 degrees, extension 10 degrees Straight Leg Raise test: Left/ Right positive at <35 degrees Krystina test: positive right / positive left. Severe tenderness over the Sacroiliac joint on the Right / Left sides Gaenslen test: positive bilaterally Seated flexion test: positive bilaterally. Sacral spine : Severe tenderness over the Sacroiliac joint: right side / left side Range of motion: Flexion of the lumbar spine <60 degrees Range of motion: Extension of the lumbar spine <20 degrees Gaenslen's Test positive Krystina test: positive right side / left side Thigh Thrust Test Sacral Thrust Test Imaging: MRI noncontrast of the lumbar spine from 04/24/23 reviewed MRI noncontrast of the cervical spine from 08/17/23 reviewed Assessment/ Plan : Lumbar radiculopathy, Cervical C4-C6 severe radiculopathy Recommendation of ASHISH C6-C7 #1. Risk, benefits of procedure discussed and patient verbalized understanding. All questions answered. I have spent greater than 30 minutes on patient care today. Dr Quarles was available by phone for the evaluation of this patient. The time was used to review the medical records including relevant urine studies and Prescription history (MAPs), review of the available imaging, evaluation and examination of the patient, coordination of care with the medical staff and if applicable referring physicians, as well as creation of the medical record - Pain Location Bilateral Lower Neck Non-Pharmacological Interventions: Inactivity, Physical Therapy, Position/Reposition, Relaxation Technique, Sitting Pharmacological Interventions: Epidural PQRS Narrative: Smoking Status Heavy tobacco smoker Blood Pressure 167/90 Pain Intensity [Bilateral 8 Lower Neck] Scale Used Numeric (1 - 10) Hx Alcohol Use (MH) Yes Home Medications: Ambulatory Orders No Known Home Medications 09/18/24 Controlled Substance Measures - Controlled Substance Measures Is patient prescribed a controlled substance at discharge?: No
== END ==
LOC: PNWHC3 10:12
PROVIDERS: ATTEND Specialist
DX: M47.22 Other spondylosis with radiculopathy, cervical region (principal); M47.26 Other spondylosis with radiculopathy, lumbar region
CPT/HCPCS: 99211

== ENCOUNTER → 2024-11-02 | Outpatient (CLI) | payer MEDICARE ==
[2024-11-02 10:20] VITALS: BP 165/79; PULSE 52; RESP 16; TEMP 97.2
--- NOTE | 2024-11-02 15:16 | P.PAINPG ---
Objective - Vital Signs Vital signs: Intake & Output 11/01/24 11/02/24 11/02/24 18:59 06:59 18:59 Weight 77.111 kg PQRS Measure Charge Sheet Comment: HISTORY OF PRESENT ILLNESS: A 64 yr old male w fiance at side presents today w severe and chronic neck and LBP x 1 yr secondary to radiculopathy, spondylosis and facet arthropathy without myelopathy for evaluation s/p L paramedian ASHISH C7-T1 #1. Pt states he experienced 80 % pain relief x 3 wks s/p procedure. Pt states pain level is provoked at 6-10 /10 in intensity in the lumbar spine, constant, predominantly axial, sharp in character w occasional shooting pain towards the hips, buttocks and LEs. Pain is provoked by any movement. Pain is alleviated by chiropractic treatments weekly x 6 wks which ended in May-Jul 2023 (cervical, lumbar), manual massage, repositioning and rest. Oswestry axial pain score of 14. Interventional procedures include L TFESI L5-S1 x1, ASHISH C6-C7 x1 (08/31), L paramedian C7-T1 x1 (11/01) Medications include Cannabis use REVIEW OF ORGAN SYSTEMS: CONSTITUTIONAL: No fevers or chills. No recent weight loss. NEUROLOGICAL: + numbness and tingling along the distal extremities. No seizure disorders or headaches. MUSCULOSKELETAL: + pain PSYCHIATRIC: Denies current depression or suicidal thoughts. Physical Examinations : Constitutional : Cooperative , not in acute distress . Neurologic : Cranial nerve II to XII intact. No focal neurological deficits. Psychiatric : alert & oriented x 3. Matching mood & appropriate affect. Judgment & insight intact. Musculoskeletal : Cervical Spine Motor strength in the deltoid and biceps: Normal right side. Normal Left side Motor strength biceps and the wrist extensors: Normal right side . Normal left side Motor strength in the triceps muscle: Normal right side. Normal left side Deep tendon reflexes: Normal at the biceps. Normal at Brachioradialis. Normal at triceps Vertebral body tenderness to deep palpation over C6 Cervical facet loading test: positive bilaterally Spurling test: positive bilaterally BL C6-C7 Neck distraction test: positive bilaterally Abby sign: positive bilaterally Lumbar spine Motor strength lower extremities ,thigh and legs 5/5 Right side , 5/5 Left side Deep tendon reflexes : Normal Knee Jerk. Normal Ankle Jerk Vertebral body tenderness L4 Hyde Test positive Lumbar facet Loading Test: positive Right / positive Left Range of motion of the lumbar spine Flexion 30 degrees, extension 10 degrees Straight Leg Raise test: Left> Right positive at <35 degrees Krystina test: positive right / positive left. Severe tenderness over the Sacroiliac joint on the Right / Left sides Gaenslen test: positive bilaterally Seated flexion test: positive bilaterally. Sacral spine : Severe tenderness over the Sacroiliac joint: right side / left side Range of motion: Flexion of the lumbar spine <60 degrees Range of motion: Extension of the lumbar spine <20 degrees Gaenslen's Test positive Krystina test: positive right side / left side Thigh Thrust Test Sacral Thrust Test Imaging: MRI non contrast of the lumbar spine from 04/24/23 reviewed MRI non contrast of the cervical spine from 08/17/23 reviewed Assessment/ Plan : L4-S1 radiculopathy, Cervical C4-C6 severe radiculopathy Recommendation of EIS L4-L5 #1. Risk, benefits of procedure discussed and patient verbalized understanding. All questions answered. I have spent greater than 30 minutes on patient care today. Dr Quarles was available by phone for the evaluation of this patient. The time was used to review the medical records including relevant urine studies and Prescription history (MAPs), review of the available imaging, evaluation and examination of the patient, coordination of care with the medical staff and if applicable referring physicians, as well as creation of the medical record PQRS Narrative: Smoking Status Heavy tobacco smoker Hx Alcohol Use (MH) Yes Home Medications: Ambulatory Orders No Known Home Medications 09/18/24 Controlled Substance Measures - Controlled Substance Measures Is patient prescribed a controlled substance at discharge?: No
== END ==
LOC: PNWHC3 10:00
PROVIDERS: ATTEND Specialist
DX: M47.27 Other spondylosis with radiculopathy, lumbosacral region (principal); M47.22 Other spondylosis with radiculopathy, cervical region; F17.210 Nicotine dependence, cigarettes, uncomplicated; F12.90 Cannabis use, unspecified, uncomplicated
CPT/HCPCS: 99211

== ENCOUNTER 2024-11-28 07:37 | Day surgery (SDC) | payer MEDICARE ==
[2024-11-24 13:11] VITALS: BMI 25.0
[2024-11-28 07:56] VITALS: TEMP 97.6
[2024-11-28] MEDS ORDERED: IOPAMIDOL M300 15ML VIAL ONE (08:37)
[2024-11-28] MEDS ORDERED: methylPREDNISolone ACETATE 80 MG/ML 1 ML VIAL ONE (08:37)
--- NOTE | 2024-11-28 08:57 | P.PCN ---
Description of Procedure: PREOPERATIVE DIAGNOSIS: 1- Lumbar Degenerative Disc Diseases 2-Lumbar spondylosis with Facet arthropathy without myelopathy. 3-lumbar spinal stenosis 4-Lumber radiculopathy POSTOPERATIVE DIAGNOSIS: 1-lumbar degenerative disc disease. 2-lumbar spondylosis with facet arthropathy without myelopathy. 3-lumbar spinal stenosis. 4-Lumber radiculopathy PROCEDURE Injection of radio contrast material into L4-5 interspace, interpretation of epidurogram, injection of steroid at L4- 5 epidural space under fluoroscopic guidance. ANESTHESIA: Lidocaine 1% subcutaneously. In OR continuous pulse ox, EKG, blood pressure and verbal communication was maintained with the patient. EBL: Minimal PROCEDURE INDICATION: Before the procedure were discussed with the patient detailed procedure, alternatives, complications including infection, bleeding, nerve damage, paralysis all of which could be permanent. Patient understands and all questions were answered. PROCEDURE DESCRIPTION : After getting consent, patient in OR in prone position. Back was prepped with chlorhexidine and draped in sterile fashion. After injecting 10 mL of 1% lidocaine subcutaneously, a 20-gauge Tuohy needle was introduced at L4 5 interspace with loss of resistance technique using a syringe filled with air. Negative CSF, negative blood, negative paresthesia. Needle position was confirmed with AP and lateral view of the fluoroscope. After repeat negative aspiration 2 mL of Omnipaque 200 water soluble contrast was injected. Contrast was noted in the epidural space. No contrast was noted into intrathecal or intravascular space. After repeat negative aspiration 6 mL solution was injected intermittently which consists of 5 mL of preservative-free normal saline mixed with 1 mL of 80 mg Depo-Medrol. Needle was withdrawn intact. Skin was cleansed and Band-Aids was applied. DISPOSITION / PLANS: The patient tolerated the procedure well. No complication. The patient was placed in a supine position and transferred to the recovery area in a stable condition for observation. There was no evidence of lower extremity motor or sensory deficit after the procedure. Patient was discharged from the recovery room after meeting discharge criteria. Home discharge instructions were given to the patient by the staff. The patient was reexamined prior to discharge. The patient will schedule a follow up in the clinic in 2-4 weeks.
[2024-11-28 09:03] VITALS: BP 154/78; PULSE 53; RESP 14
--- NOTE | 2024-11-28 09:03 | FL ---
EXAMINATION TYPE: FL guided pain mgmt statistic DATE OF EXAM: 11/28/2024 FLUOROSCOPY cervical epidural steroid injection 43 sec FL .[id number] DAP dose there is one image submitted. [facility], Workstation: [email or web address], 11/28/2024 9:01 AM
== END 2024-11-28 09:07 | disposition home or self-care (01) ==
LOC: ORPAIN 07:37
PROVIDERS: ATTEND Pain Medicine Interventional Pain Medicine
DX: M48.061 Spinal stenosis, lumbar region without neurogenic claudication (principal); M47.816 Spondylosis without myelopathy or radiculopathy, lumbar region; M51.369 Other intervertebral disc degeneration, lumbar region without mention of lumbar back pain or lower extremity pain
CPT/HCPCS: 62323; Q9967; J1010